=== PATIENT | female | born 1975 | race African-American/Black ===

== ENCOUNTER 2021-11-11 07:13 | Emergency (ER) | payer OTHER, SELFPAY ==
[2021-11-11 07:45] VITALS: BP 162/88; PULSE 87; RESP 17; O2SAT 100; BMI 27.9
[2021-11-11 08:13] LABS: MANUAL DIFF FLAG NO
[2021-11-11 08:14] LABS: Basophils Percent Auto 0.5 % (0-2); Eosinophils Absolute Auto 0.1 X10*3/uL (0.0-0.4); Eosinophils Percent Auto 2.6 % (0-4); Hematocrit 42.3 % (37.0-47.0); Imm Gran Abs Auto 0.01 X10*3/uL (0.00-0.03); Imm Gran Pct Auto 0.3 % (0.0-0.4); Lymphocytes Absolute Auto 1.7 X10*3/uL (1.2-4.9); Lymphocytes Percent Auto 43.6 % (20-40); Mean Corpuscular HGB Conc 33.1 g/dl (31.0-35.0); Mean Corpuscular Hemoglobin 29.5 pg (27.0-33.0); Mean Corpuscular Volume 89.2 fL (80.0-98.0); Mean Platelet Volume 8.3 fL (9.4-12.3); Monocytes Absolute Auto 0.3 X10*3/uL (0.1-1.2); Monocytes Percent Auto 6.7 % (2-11); Neutrophils Absolute Auto 1.8 x10*3/uL (2.0-8.3); Neutrophils Percent Auto 46.3 % (45-73); Platelet Count 301 X10*3/uL (160-400); Red Blood Count 4.74 X10*6/uL (4.20-5.50); Red Cell Distribution Width 13.4 % (11.0-16.0); White Blood Count 3.9 X10*3/uL (4.8-10.8)
[2021-11-11 08:17] LABS: Appearance Urine HAZY; Color Urine YELLOW; Glucose Urine UA NEG (NEG); Leukocyte Esterase Urine NEG (NEG); Nitrite Urine NEG (NEG); Specific Gravity - Urine >= 1.030 (1.005-1.025); Urine Blood NEG (NEG); Urine Ketones 5 MG/DL (NEG); Urine Protein TRACE MG/DL (NEG-TRACE)
[2021-11-11 08:28] LABS: D Dimer High Sensitivity 159 NG/ML; Partial Thromboplastin Time 39.2 SEC (24.1-38.0)
[2021-11-11 09:09] LABS: Troponin-I High Sensitivity < 3.5 ng/L (<3.5-17.0)
[2021-11-11 09:10] LABS: Alanine Aminotransferase 30 U/L (0-31); Albumin Level 4.9 g/dL (3.5-5.0); Alkaline Phosphatase 90 U/L (39-117); Anion Gap 14 (12-20); Aspartate Amino Transferase 28 U/L (5-31); Bilirubin Total 0.4 mg/dL (0.0-1.0); Blood Urea Nitrogen 7 mg/dL (9-16); Calcium 9.7 mg/dL (8.4-10.2); Carbon Dioxide 27 mmol/L (22-29); Chloride 102 mmol/L (96-108); Creatinine Clr Calc Pharmacy 67.9; Estimated Glomerular Filt Rate 58; Glucose Random 123 mg/dL (60-115); Lipase 28 U/L (8-78); Potassium 4.3 mmol/L (3.3-5.1); Sodium 139 mmol/L (135-145)
--- NOTE | 2021-11-11 11:17 | ED_ITS ---
HPI - General Adult General Chief complaint: General Medical Stated complaint: SOB Time Seen by Provider: 11/11/21 07:40 Source: patient Mode of arrival: ambulatory Limitations: no limitations History of Present Illness HPI narrative: 46-year-old female who presents emergency department for evaluation of shortness of breath and elevated blood pressures. The patient has a history of hypertension for at least 10 years. She states initially she was treated with lisinopril but developed a chronic cough and was changed to metoprolol. The patient was taking metoprolol 25 mg once a day but her blood pressures continue to be elevated. She states that her blood pressures would range from a systolic of 146-190 and a diastolic of 101-120. She crease term metoprolol to 50 mg once a day but did not seen any improvement in her blood pressure. She states that when her blood pressure is high she gets headaches. She also states that she has been feeling short of breath and fatigued over the past month. She does describe dyspnea on exertion is specially when she goes up her stairs. She denied chest pain neck pain, jaw pain or back pain associated with her dyspnea on exertion. The patient did see her PCP on 11/10/2021 (Joe BAEZ). Given her history ovarian cancer , her elevated blood pressures, tachycardia and some nonspecific T-wave changes on her EKG, he was concerned that the patient was at risk for DVT/PE advised to go to the emergency department. The patient could not go to the emergency department yesterday but did come to the emergency department today for evaluation. At the time my evaluation, the patient denied headache, chest pain, nausea, vomiting or abdominal pain. She denied weakness or fatigue. Related Data Previous Rx's Medication Instructions Recorded metoprolol succinate 100 mg 100 mg PO DAILY #30 tab 11/11/21 tablet,extended release 24 hr Allergies Allergy/AdvReac Type Severity Reaction Status Date / Time Penicillins Allergy Intermediate Hives Verified 11/11/21 07:41 Review of Systems Review of Systems: Yes all other systems are reviewed and are negative [facility] Past Medical History [facility] Narrative: Past medical history: Hypertension, GERD, ovarian cancer diagnosed in 2019 treated with surgery and chemo therapy. neuropathy secondary to chemotherapy. Past surgical history: Hysterectomy/BSO secondary to ovarian cancer. 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 She denies tobacco alcohol and drug use. Social History Social History Advance Directives: No Physical Exam ED Vital Signs: Vital Signs - 24 hr 11/11/21 07:45 Pulse Rate 87 Respiratory Rate 17 Blood Pressure 162/88 H Pulse Oximetry 100 BMI result Body Mass Index 27.9 Const Other: Awake, alert, female patient, very pleasant cooperative, does not appear to be in distress, answers all questions appropriately Orientation/consciousness: oriented to person and oriented to place HENMT Head: Yes normal to inspection, Yes normocephalic and Yes atraumatic Ears: external ears normal General nose exam: Normal external nose present Face and sinus: Yes normal facial exam Mouth: Normal oral and palatal mucosa present Throat: Yes posterior oropharynx normal Eyes General: appearance normal, both eyes and all related structures Pupils: Equal, round and reactive pupils present Neck Neck: Yes normal visual inspection, Yes no lymphadenopathy, Yes trachea midline and Yes supple Chest Chest palpation & inspection: normal inspection of the chest and normal palpation of entire chest wall Resp Effort & Inspection: normal respiratory effort and able to speak in complete sentences Auscultation: clear to auscultation bilaterally Cardio Rate: regular rate Rhythm: regular rhythm Heart sounds: S1 normal heart sound present, S2 normal heart sound present and no murmurs GI Inspection: Yes normal to inspection Palpation (GI): Soft to palpation, nontender and no guarding Auscultation: normal bowel sounds General: Yes no CVA tenderness Back/Spine/Pelvis Back: no CVA tenderness Skin General skin exam: no rashes or lesions noted Neuro General: oriented to person and oriented to place Cranial nerves: Yes CN's II-XII intact bilaterally and Yes Equal, round and reactive pupils present Cognition (Neuro): normal cognition Motor exam (neuro): 5/5 motor strength present throughout Extrem General: Yes normal to inspection Psych Appearance: grossly normal Speech and movement: Normal speech and movement present Affect: normal affect Attitude: cooperative Thought process: Normal thought process present Thought content: Normal thought content present Course Course Course Narrative: 46-year-old female who presents emergency department for evaluation of elevated blood pressure and dyspnea on exertion. Patient's blood pressure is currently being treated with metoprolol 50 mg once a day. initial vital signs revealed a blood pressure of 162/88. The rest of the patient's vital signs were normal including an O2 saturation of 100% on room air. The patient's physical examination was normal. Laboratory evaluation included a CBC, CMP, PT/INR, PTT, high sensitivity troponin I and high sensitivity dimer, and urinary. Patient's WBC was low at 3900. Glucose was elevated 123. Patient's high sensitivity D-dimer was normal at 159 which is reassuring and rules out PE as the cause of her dyspnea. Patient's troponin was also below detectable limits which is reassuring. Patient's urinalysis revealed trace protein and positive for glucose otherwise was unremarkable as well. At this time I think that the patient's elevated blood pressures are secondary to her essential hypertension. The patient's has been on a higher dose of her metoprolol over the past month but has continued to have elevated blood pressures. Therefore I will increase her metoprolol from 50 mg daily to 100 mg daily. At this time I do not have a clear etiology for her dyspnea, cardiac etiology needs to be considered. I told the patient she should discuss getting an echocardiogram as an outpatient with her provider. The patient was advised to check her blood pressures on Mondays, Wednesdays and Saturday mornings for the next month and to write these blood pressures down to discuss with her provider. She was given printed and verbal instructions and discharged home. Medical Decision Making Lab Data Result diagrams: 11/11/21 08:02 11/11/21 08:02 Labs: Lab Results 11/11/21 11/11/21 11/11/21 Range/Units 08:02 08:02 08:02 WBC 3.9 L (4.8-10.8) X10*3/uL RBC 4.74 (4.20-5.50) X10*6/uL Hgb 14.0 (12.0-16.0) g/dl Hct 42.3 (37.0-47.0) % MCV 89.2 (80.0-98.0) fL MCH 29.5 (27.0-33.0) pg MCHC 33.1 (31.0-35.0) g/dl RDW 13.4 (11.0-16.0) % Plt Count 301 (160-400) X10*3/uL MPV 8.3 L (9.4-12.3) fL Immature Gran % (Auto) 0.3 (0.0-0.4) % Neut % (Auto) 46.3 (45-73) % Lymph % (Auto) 43.6 H (20-40) % Hawkins % (Auto) 6.7 (2-11) % Eos % (Auto) 2.6 (0-4) % Baso % (Auto) 0.5 (0-2) % Lymph # (Auto) 1.7 (1.2-4.9) X10*3/uL Hawkins # (Auto) 0.3 (0.1-1.2) X10*3/uL Eos # (Auto) 0.1 (0.0-0.4) X10*3/uL Baso # (Auto) 0.0 (0.0-0.2) X10*3/uL Abs Immat Gran (auto) 0.01 (0.00-0.03) X10*3/uL Absolute Neuts (auto) 1.8 L (2.0-8.3) x10*3/uL Absolute Nucleated RBC 0.000 (0.0-0.012) X10*3/uL Nucleated RBC % (auto) 0.0 (0.0-0.2) /100WBC PT 11.0 (9.9-13.0) SEC INR 1.0 (0.9-1.1) APTT 39.2 H (24.1-38.0) SEC D-Dimer High Sensitivty 159 NG/ML Sodium 139 (135-145) mmol/L Potassium 4.3 (3.3-5.1) mmol/L Chloride 102 (96-108) mmol/L Carbon Dioxide 27 (22-29) mmol/L Anion Gap 14 (12-20) BUN 7 L (9-16) mg/dL Creatinine 1.03 (0.5-1.4) mg/dL Estim Creat Clear Calc 67.9 Estimated GFR 58 Random Glucose 123 H (60-115) mg/dL Calcium 9.7 (8.4-10.2) mg/dL Total Bilirubin 0.4 (0.0-1.0) mg/dL AST 28 (5-31) U/L ALT 30 (0-31) U/L Alkaline Phosphatase 90 (39-117) U/L Troponin I High Sens (<3.5-17.0) ng/L Total Protein 8.0 (6.5-8.0) g/dL Albumin 4.9 (3.5-5.0) g/dL Lipase 28 (8-78) U/L Urine Color Urine Appearance Urine pH (5.0-8.0) Ur Specific [place] (1.005-1.025) Urine Protein (NEG-TRACE) MG/DL Urine Glucose (UA) (NEG) MG/DL Urine Ketones (NEG) MG/DL Urine Blood (NEG) Urine Nitrite (NEG) Ur Leukocyte Esterase (NEG) 11/11/21 11/11/21 Range/Units 08:02 08:03 WBC (4.8-10.8) X10*3/uL RBC (4.20-5.50) X10*6/uL Hgb (12.0-16.0) g/dl Hct (37.0-47.0) % MCV (80.0-98.0) fL MCH (27.0-33.0) pg MCHC (31.0-35.0) g/dl RDW (11.0-16.0) % Plt Count (160-400) X10*3/uL MPV (9.4-12.3) fL Immature Gran % (Auto) (0.0-0.4) % Neut % (Auto) (45-73) % Lymph % (Auto) (20-40) % Hawkins % (Auto) (2-11) % Eos % (Auto) (0-4) % Baso % (Auto) (0-2) % Lymph # (Auto) (1.2-4.9) X10*3/uL Hawkins # (Auto) (0.1-1.2) X10*3/uL Eos # (Auto) (0.0-0.4) X10*3/uL Baso # (Auto) (0.0-0.2) X10*3/uL Abs Immat Gran (auto) (0.00-0.03) X10*3/uL Absolute Neuts (auto) (2.0-8.3) x10*3/uL Absolute Nucleated RBC (0.0-0.012) X10*3/uL Nucleated RBC % (auto) (0.0-0.2) /100WBC PT (9.9-13.0) SEC INR (0.9-1.1) APTT (24.1-38.0) SEC D-Dimer High Sensitivty NG/ML Sodium (135-145) mmol/L Potassium (3.3-5.1) mmol/L Chloride (96-108) mmol/L Carbon Dioxide (22-29) mmol/L Anion Gap (12-20) BUN (9-16) mg/dL Creatinine (0.5-1.4) mg/dL Estim Creat Clear Calc Estimated GFR Random Glucose (60-115) mg/dL Calcium (8.4-10.2) mg/dL Total Bilirubin (0.0-1.0) mg/dL AST (5-31) U/L ALT (0-31) U/L Alkaline Phosphatase (39-117) U/L Troponin I High Sens < 3.5 (<3.5-17.0) ng/L Total Protein (6.5-8.0) g/dL Albumin (3.5-5.0) g/dL Lipase (8-78) U/L Urine Color YELLOW Urine Appearance HAZY Urine pH 6.0 (5.0-8.0) Ur Specific [place] >= 1.030 H (1.005-1.025) Urine Protein TRACE (NEG-TRACE) MG/DL Urine Glucose (UA) NEG (NEG) MG/DL Urine Ketones 5 (NEG) MG/DL Urine Blood NEG (NEG) Urine Nitrite NEG (NEG) Ur Leukocyte Esterase NEG (NEG) Discharge Plan Discharge Clinical Impression: MARI (dyspnea on exertion) Hypertension Qualifiers: Hypertension type: primary hypertension Qualified Code(s): I10 - Essential (primary) hypertension Patient Disposition: Home, Self-Care Additional Instructions: Your blood work today was normal. Your D-dimer was not elevated which suggests that you do not have a pulmonary embolism (blood clot your lungs) causing your shortness of breath when you exert yourself. Your high sensitivity troponin I (a marker of heart damage) was below detectable limits which is reassuring as well. Your urine revealed no protein in the urine and your kidney blood tests were normal as well which is reassuring. Often, there is not a clear cause or reason why your high blood pressure is higher than usual The treatment is to increase the blood pressure medication that your on or to add a new blood pressure medication to the medicine you are taking. At this time, I want to increase your metoprolol from 50 mg once a day to 100 mg once a day. Once we increase your blood pressure medication , it may take 4-6 weeks before your blood pressure improves. I want you to check your blood pressure in the mornings on Mondays, Wednesdays and Fridays. Write down these blood pressure readings and I want you to review them with your primary provider in 1 month. I do not have a clear cause for your shortness of breath with exertion, sometimes this can be due heart problems. I want you to discuss getting a echocardiogram of your heart as an outpatient with your provider and possibly getting further testing of your heart if your provider thinks it is necessary. Please return to the emergency department if your symptoms get worse or if you develop any symptoms that are concerning to you. Prescriptions: New metoprolol succinate 100 mg tablet extended release 24 hr 100 mg PO DAILY Qty: 30 0RF
== END 2021-11-11 11:40 | disposition home or self-care (01) ==
PROVIDERS: Emergency Provider Emergency Medicine Emergency Medical Services; PCP Internal Medicine
DX: R06.02 Shortness of breath (principal); I10 Essential (primary) hypertension; Z79.899 Other long term (current) drug therapy
CPT/HCPCS: 36415; 80053; 81003; 83690; 84484; 85025; 85379; 85610; 85730; 99281; 99283

== ENCOUNTER 2022-10-22 16:26 | Emergency (ER) | payer OTHER, SELFPAY ==
--- NOTE | 2022-10-22 16:43 | ED_ITS ---
History of Present Illness General Chief Complaint: Headache <NESTOR Trevizo - Last Filed: 10/22/22 16:45> Stated Complaint: nose bleed, hedache <NESTOR Trevizo - Last Filed: 10/22/22 16:45> Time Seen by Provider: 10/22/22 16:52 <NESTOR Trevizo - Last Filed: 10/22/22 16:45> Source: patient <Arturo Hoff MD - Last Filed: 10/22/22 18:51> Mode of arrival: ambulatory <Arturo Hoff MD - Last Filed: 10/22/22 18:51> Limitations: no limitations <Arturo Hoff MD - Last Filed: 10/22/22 18:51> History of Present Illness HPI Narrative: Patient with recent history a few months ago of epistaxis, at that time her BP was running in the 200s. Now this week twice, not taking her BP. She is taking amlodipine and metopolol. No recent changes in her medication. Denies sinusitis or seasonal allergies. <Arturo Hoff MD - Last Filed: 10/22/22 18:51> Location: Yes left naris and Yes right nares <Arturo Hoff MD - Last Filed: 10/22/22 18:51> Onset/current episode: Yes week(s) <Arturo Hoff MD - Last Filed: 10/22/22 18:51> Duration: Yes intermittent <Arturo Hoff MD - Last Filed: 10/22/22 18:51> Pertinent past history: Yes hypertension and Yes history of previous nose bleed <Arturo Hoff MD - Last Filed: 10/22/22 18:51> Context: Yes history of previous nose bleed <Arturo Hoff MD - Last Filed: 10/22/22 18:51> Related Data Home Medications: Previous Rx's Medication Instructions Recorded metoprolol succinate 100 mg 100 mg PO DAILY #30 tabs 11/11/21 tablet,extended release 24 hr <NESTOR Trevizo - Last Filed: 10/22/22 16:45> Allergies/Adverse Reactions: Allergies Allergy/AdvReac Type Severity Reaction Status Date / Time Penicillins Allergy Intermediate Hives Verified 10/22/22 16:45 <NESTOR Trevizo - Last Filed: 10/22/22 16:45> Review of Systems Review of Systems: Yes all other systems are reviewed and are negative <Arturo Hoff MD - Last Filed: 10/22/22 18:51> ENT: Comments: epistaxis and headache <Arturo Hoff MD - Last Filed: 10/22/22 18:51> Neurologic: Denies Sensory deficit (Neuro) <Arturo Hoff MD - Last Filed: 10/22/22 18:51> [facility] Social History Social History: Social History Advance Directives: No Advance Directives Information Provided: Yes <NESTOR Trevizo - Last Filed: 10/22/22 16:45> Physical Exam Vital Signs: Vital Signs: Last Vital Signs Temp 98.7 F 10/22/22 16:45 Pulse 112 H 10/22/22 16:45 Resp 16 10/22/22 16:45 BP 162/109 H 10/22/22 16:45 Pulse Ox 99 10/22/22 16:45 O2 Del Method Room Air 10/22/22 16:45 BMI result Body Mass Index 29.2 <NESTOR Trevizo - Last Filed: 10/22/22 16:45> Vital Signs: Last Vital Signs Temp 98.7 F 10/22/22 16:45 Pulse 112 H 10/22/22 16:45 Resp 16 10/22/22 16:45 BP 162/109 H 10/22/22 16:45 Pulse Ox 99 10/22/22 16:45 O2 Del Method Room Air 10/22/22 16:45 BMI result Body Mass Index 29.2 <Arturo Hoff MD - Last Filed: 10/22/22 18:51> Const: General: healthy appearing <Arturo Hoff MD - Last Filed: 10/22/22 18:51> Nutritional Appearance: average body habitus <Arturo Hoff MD - Last Filed: 10/22/22 18:51> Orientation/consciousness: oriented to person and patient oriented x3 <Arturo Hoff MD - Last Filed: 10/22/22 18:51> Limitations: no limitations <Arturo Hoff MD - Last Filed: 10/22/22 18:51> HEENT: Other: bilateral medial blood vessels exposed with clot <Arturo Hoff MD - Last Filed: 10/22/22 18:51> Head: Yes normal to inspection <Arturo Hoff MD - Last Filed: 10/22/22 18:51> Ears: external ears normal <Arturo Hoff MD - Last Filed: 10/22/22 18:51> Mouth: Normal oral and palatal mucosa present and oropharynx normal <Arturo Hoff MD - Last Filed: 10/22/22 18:51> Throat: Yes posterior oropharynx normal <Arturo Hoff MD - Last Filed: 10/22/22 18:51> Eyes: General: appearance normal, both eyes and all related structures <Arturo Hoff MD - Last Filed: 10/22/22 18:51> Neck: Other: supple <Arturo Hoff MD - Last Filed: 10/22/22 18:51> Neck: Yes normal visual inspection <Arturo Hoff MD - Last Filed: 10/22/22 18:51> Chest: Chest palpation & inspection: normal inspection of the chest <Arturo Hoff MD - Last Filed: 10/22/22 18:51> Resp: Auscultation: clear to auscultation bilaterally <Arturo Hoff MD - Last Filed: 10/22/22 18:51> Cardio: Jugular venous distension: no JVD <Arturo Hoff MD - Last Filed: 10/22/22 18:51> Rate: regular rate <Arturo Hoff MD - Last Filed: 10/22/22 18:51> Rhythm: regular rhythm <Arturo Hoff MD - Last Filed: 10/22/22 18:51> Heart sounds: S1 normal heart sound present and S2 normal heart sound present <MD Audi Botello Last Filed: 10/22/22 18:51> GI: Inspection: Yes normal to inspection <Arturo Hoff MD - Last Filed: 10/22/22 18:51> Palpation (GI): Soft to palpation, nontender and No hepatosplenomegaly present <Arturo Hoff MD - Last Filed: 10/22/22 18:51> Auscultation: normal bowel sounds <Arturo Hoff MD - Last Filed: 10/22/22 18:51> : General: Yes no CVA tenderness <Arturo Hoff MD - Last Filed: 10/22/22 18:51> Back/Spine/Pelvis: Back: no CVA tenderness <Arturo Hoff MD - Last Filed : 10/22/22 18:51> Skin: General skin exam: no rashes or lesions noted <Arturo Hoff MD - Last Filed: 10/22/22 18:51> Neuro: General: oriented to person and patient oriented x3 <Arturo Hoff MD - Last Filed: 10/22/22 18:51> Cranial nerves: Yes CN's II-XII intact bilaterally <Arturo Hoff MD - Last Filed: 10/22/22 18:51> Motor exam (neuro): 5/5 motor strength present throughout <Arturo Hoff MD - Last Filed: 10/22/22 18:51> Sensory Exam: No Sensory deficit (Neuro) <Arturo Hoff MD - Last Filed: 10/22/22 18:51> Extrem: General: Yes normal to inspection <Arturo Hoff MD - Last Filed: 10/22/22 18:51> Psych: Appearance: grossly normal <Arturo Hoff MD - Last Filed: 10/22/22 18:51> Course Course Course Narrative: RME - 47 yo female with history of HTN, ovarian cancer s/p surgery and chemo in 2019, history of nose bleeds who presents to the ER for evaluation of epistaxis today and yesterday. Bleeding started in the left nare and then went to the right, lasted about 10-15 before it stopped. She reports large clots coming out. Nose bleeds w/ HTN. No active bleeding now. Plan: basic labs and coags. <NESTOR Trevizo - Last Filed: 10/22/22 16:45> Medical Decision Making Differential Diagnosis Differential Diagnoses: The differential diagnosis associated with the presentation includes (epistaxis, thrombocytopenia, anemia, ) <Arturo Hoff MD - Last Filed: 10/22/22 18:51> Lab Data MDM Lab Attestation statement: I reviewed the patient's lab results. (patient with new anemia but has been bleeding for 2 weeks) <Arturo Hoff MD - Last Filed: 10/22/22 18:51> Result Diagrams: 10/22/22 17:04 10/22/22 17:04 <NESTOR Trevizo - Last Filed: 10/22/22 16:45> Labs: Lab Results 10/22/22 10/22/22 10/22/22 Range/Units 17:04 17:04 17:04 WBC 8.6 (4.8-10.8) X10*3/uL RBC 3.75 L D (4.20-5.50) X10*6/uL Hgb 10.9 L D (12.0-16.0) g/dl Hct 33.4 L D (37.0-47.0) % MCV 89.1 (80.0-98.0) fL MCH 29.1 (27.0-33.0) pg MCHC 32.6 (31.0-35.0) g/dl RDW 13.5 (11.0-16.0) % Plt Count 295 (160-400) X10*3/uL MPV 8.6 L (9.4-12.3) fL Immature Gran % (Auto) 0.4 (0.0-0.4) % Neut % (Auto) 63.1 (45-73) % Lymph % (Auto) 26.9 (20-40) % [place] % (Auto) 8.3 (2-11) % Eos % (Auto) 0.8 (0-4) % Baso % (Auto) 0.5 (0-2) % Lymph # (Auto) 2.3 (1.2-4.9) X10*3/uL [place] # (Auto) 0.7 (0.1-1.2) X10*3/uL Eos # (Auto) 0.1 (0.0-0.4) X10*3/uL Baso # (Auto) 0.0 (0.0-0.2) X10*3/uL Abs Immat Gran (auto) 0.03 (0.00-0.03) X10*3/uL Absolute Neuts (auto) 5.4 (2.0-8.3) x10*3/uL Absolute Nucleated RBC 0.000 (0.0-0.012) X10*3/uL Nucleated RBC % (auto) 0.0 (0.0-0.2) /100WBC PT 11.4 (10.0-13.1) SEC INR 1.0 (0.9-1.1) APTT 34.7 (26.0-36.4) SEC Sodium 138 (135-145) mmol/L Potassium 3.8 (3.3-5.1) mmol/L Chloride 103 (96-108) mmol/L Carbon Dioxide 26 (22-29) mmol/L Anion Gap 13 (12-20) BUN 8 L (9-16) mg/dL Creatinine 0.88 (0.5-1.4) mg/dL Estim Creat Clear Calc 80.2 Estimated GFR > 60 Random Glucose 140 H (60-115) mg/dL Calcium 9.2 (8.4-10.2) mg/dL Magnesium 2.0 (1.6-2.6) mg/dL Total Bilirubin 0.2 (0.0-1.0) mg/dL Direct Bilirubin < 0.2 (0.0-0.5) mg/dL AST 21 (5-31) U/L ALT 21 (0-31) U/L Alkaline Phosphatase 87 (39-117) U/L Total Protein 6.7 (6.5-8.0) g/dL Albumin 4.3 (3.5-5.0) g/dL <NESTOR Trevizo - Last Filed: 10/22/22 16:45> Lab Results 10/22/22 10/22/22 10/22/22 Range/Units 17:04 17:04 17:04 WBC 8.6 (4.8-10.8) X10*3/uL RBC 3.75 L D (4.20-5.50) X10*6/uL Hgb 10.9 L D (12.0-16.0) g/dl Hct 33.4 L D (37.0-47.0) % MCV 89.1 (80.0-98.0) fL MCH 29.1 (27.0-33.0) pg MCHC 32.6 (31.0-35.0) g/dl RDW 13.5 (11.0-16.0) % Plt Count 295 (160-400) X10*3/uL MPV 8.6 L (9.4-12.3) fL Immature Gran % (Auto) 0.4 (0.0-0.4) % Neut % (Auto) 63.1 (45-73) % Lymph % (Auto) 26.9 (20-40) % [place] % (Auto) 8.3 (2-11) % Eos % (Auto) 0.8 (0-4) % Baso % (Auto) 0.5 (0-2) % Lymph # (Auto) 2.3 (1.2-4.9) X10*3/uL [place] # (Auto) 0.7 (0.1-1.2) X10*3/uL Eos # (Auto) 0.1 (0.0-0.4) X10*3/uL Baso # (Auto) 0.0 (0.0-0.2) X10*3/uL Abs Immat Gran (auto) 0.03 (0.00-0.03) X10*3/uL Absolute Neuts (auto) 5.4 (2.0-8.3) x10*3/uL Absolute Nucleated RBC 0.000 (0.0-0.012) X10*3/uL Nucleated RBC % (auto) 0.0 (0.0-0.2) /100WBC PT 11.4 (10.0-13.1) SEC INR 1.0 (0.9-1.1) APTT 34.7 (26.0-36.4) SEC Sodium 138 (135-145) mmol/L Potassium 3.8 (3.3-5.1) mmol/L Chloride 103 (96-108) mmol/L Carbon Dioxide 26 (22-29) mmol/L Anion Gap 13 (12-20) BUN 8 L (9-16) mg/dL Creatinine 0.88 (0.5-1.4) mg/dL Estim Creat Clear Calc 80.2 Estimated GFR > 60 Random Glucose 140 H (60-115) mg/dL Calcium 9.2 (8.4-10.2) mg/dL Magnesium 2.0 (1.6-2.6) mg/dL Total Bilirubin 0.2 (0.0-1.0) mg/dL Direct Bilirubin < 0.2 (0.0-0.5) mg/dL AST 21 (5-31) U/L ALT 21 (0-31) U/L Alkaline Phosphatase 87 (39-117) U/L Total Protein 6.7 (6.5-8.0) g/dL Albumin 4.3 (3.5-5.0) g/dL <Arturo Hoff MD - Last Filed: 10/22/22 18:51> Chronic Conditions Patient?s care impacted by: Hypertension (patients hypertension need better control and that will help with the nosebleeds) <Arturo Hoff MD - Last Filed: 10/22/22 18:51> Procedures Procedure Narrative Procedure Narrative: bilateral nasal chemical cautery performed <Arturo Hoff MD - Last Shakir ed: 10/22/22 18:51> Discharge Plan Discharge Clinical Impression: Acute anterior epistaxis, Anemia, Hypertension <NESTOR Trevizo - Last Filed: 10/22/22 16:45> Patient Disposition: Home, Self-Care <NESTOR Trevizo - Last Filed: 10/22/22 16:45> Instructions: Nosebleed (ED), Anemia (ED), Hypertension (ED) <NESTOR Trevizo - Last Filed: 10/22/22 16:45> Additional Instructions: take a multivitamin with iron everyday <NESTOR Trevizo - Last Filed: 10/22/22 16:45> Prescriptions: No Action metoprolol succinate 100 mg tablet extended release 24 hr 100 mg PO DAILY Qty: 30 0RF <NESTOR Trevizo - Last Filed: 10/22/22 16:45> Referrals: Phan Vogel III, MD [Primary Care Provider] - 5 days <NESTOR Trevizo - Last Filed: 10/22/22 16:45>
[2022-10-22 16:45] VITALS: BP 162/109; PULSE 112; RESP 16; TEMP 37.1; O2SAT 99; BMI 29.2
[2022-10-22 17:07] LABS: MANUAL DIFF FLAG NO
[2022-10-22 17:12] LABS: Basophils Percent Auto 0.5 % (0-2); Eosinophils Absolute Auto 0.1 X10*3/uL (0.0-0.4); Eosinophils Percent Auto 0.8 % (0-4); Hematocrit 33.4 % (37.0-47.0); Hemoglobin 10.9 g/dl (12.0-16.0); Imm Gran Abs Auto 0.03 X10*3/uL (0.00-0.03); Imm Gran Pct Auto 0.4 % (0.0-0.4); Lymphocytes Absolute Auto 2.3 X10*3/uL (1.2-4.9); Lymphocytes Percent Auto 26.9 % (20-40); Mean Corpuscular HGB Conc 32.6 g/dl (31.0-35.0); Mean Corpuscular Hemoglobin 29.1 pg (27.0-33.0); Mean Corpuscular Volume 89.1 fL (80.0-98.0); Mean Platelet Volume 8.6 fL (9.4-12.3); Monocytes Absolute Auto 0.7 X10*3/uL (0.1-1.2); Monocytes Percent Auto 8.3 % (2-11); Neutrophils Absolute Auto 5.4 x10*3/uL (2.0-8.3); Neutrophils Percent Auto 63.1 % (45-73); Platelet Count 295 X10*3/uL (160-400); Red Blood Count 3.75 X10*6/uL (4.20-5.50); Red Cell Distribution Width 13.5 % (11.0-16.0); White Blood Count 8.6 X10*3/uL (4.8-10.8)
[2022-10-22 17:19] LABS: Prothrombin Time 11.4 SEC (10.0-13.1)
[2022-10-22 17:21] LABS: Partial Thromboplastin Time 34.7 SEC (26.0-36.4)
[2022-10-22 17:29] LABS: Alanine Aminotransferase 21 U/L (0-31); Albumin Level 4.3 g/dL (3.5-5.0); Alkaline Phosphatase 87 U/L (39-117); Anion Gap 13 (12-20); Aspartate Amino Transferase 21 U/L (5-31); Bilirubin Direct < 0.2 mg/dL (0.0-0.5); Bilirubin Total 0.2 mg/dL (0.0-1.0); Blood Urea Nitrogen 8 mg/dL (9-16); Calcium 9.2 mg/dL (8.4-10.2); Carbon Dioxide 26 mmol/L (22-29); Chloride 103 mmol/L (96-108); Creatinine Clr Calc Pharmacy 80.2; Estimated Glomerular Filt Rate > 60; Glucose Random 140 mg/dL (60-115); Potassium 3.8 mmol/L (3.3-5.1); Sodium 138 mmol/L (135-145); Total Protein 6.7 g/dL (6.5-8.0)
== END 2022-10-22 18:59 | disposition home or self-care (01) ==
PROVIDERS: Physician Assistant; Emergency Provider Emergency Medicine; PCP Internal Medicine
DX: R04.0 Epistaxis (principal); D64.9 Anemia, unspecified; I10 Essential (primary) hypertension; Z79.899 Other long term (current) drug therapy
CPT/HCPCS: 30901; 36415; 80048; 80076; 83735; 85025; 85610; 85730; 99282; 99283

== ENCOUNTER 2022-10-24 22:11 | Emergency (ER) | payer OTHER, SELFPAY ==
--- NOTE | ~2022-10-24 | XR_ITS ---
EXAMINATION: XR CHEST CLINICAL INFORMATION: Cough COMPARISON: None available. TECHNIQUE: 2 views of the chest were obtained. FINDINGS: No significant abnormality is noted involving the heart, lungs, mediastinum, bony thorax or soft tissues. XR/XR chest 2V IMPRESSION: Unremarkable examination.
[2022-10-24 22:28] VITALS: BP 151/86; PULSE 86; RESP 16; TEMP 36.9; O2SAT 100
--- NOTE | 2022-10-24 22:35 | ED_ITS ---
HPI - URI/Sore Throat General Chief Complaint: Upper Respiratory Symptoms Stated Complaint: Headache/nosebleed Time Seen by Provider: 10/24/22 22:18 Source: patient Mode of arrival: ambulatory Limitations: no limitations History of Present Illness HPI Narrative: Patient otherwise healthy nonsmoker with cough for 10 days getting worse episodes epistaxis was prescribed penicillin on 10/18 with without much response . No fever no chills cough is mostly dry but sometimes get mucopurulent expectoration increased cough in the night time no wheezing or shortness of breath feel congested Related Data Previous Rx's Medication Instructions Recorded metoprolol succinate 100 mg 100 mg PO DAILY #30 tabs 11/11/21 tablet,extended release 24 hr albuterol sulfate 90 mcg/actuation 2 puff inhalation Q4-6H PRN 10/25/22 aerosol inhaler (ProAir HFA) shortness of breath or wheezing #8.5 grams cefdinir 300 mg capsule 300 mg PO BID #14 caps 10/25/22 codeine 10 mg-guaifenesin 100 mg/5 10 ml PO Q6H PRN cough #237 mL 10/25/22 mL oral liquid prednisone 20 mg tablet 40 mg PO DAILY #10 tabs 10/25/22 Allergies Allergy/AdvReac Type Severity Reaction Status Date / Time No Known Allergies Allergy Verified 10/25/22 00:39 [facility] Social History Social History Alcohol intake: never Use of substances other than those prescribed or required for medical reasons: No Advance Directives: No Advance Directives Information Provided: No Patient : No Physical Exam Vital Signs: Vital Signs: Last Vital Signs Temp 98.4 F 10/24/22 22:28 Pulse 80 10/24/22 22:49 Resp 16 10/24/22 22:49 BP 151/86 H 10/24/22 22:28 Pulse Ox 96 10/24/22 23:40 O2 Del Method Room Air 10/24/22 23:40 BMI result Body Mass Index 29.2 Appearance: Alert. Oriented X3. No acute distress. HEENT: Pharynx normal. Oral Mucosa moist bilateral impacted cerumen Neck: Normal inspection. Neck supple. CVS: Normal heart rate and rhythm. Pulses normal. Respiratory: No respiratory distress. Equal air entry bilateral, no wheezing/rales/rhonchi prolonged expiration Abdomen: Soft and nontender. Bowel sounds are present, no mass palpable, no CVA tenderness Skin: Skin warm and dry. Normal skin color. Normal skin turgor. Extremities: No lower extremity edema. No calf tenderness Neuro: Oriented X 3. No motor deficit. Medications Administered Discontinued Medications Generic Name Dose Route Start Last Admin Trade Name Freq PRN Reason Stop Dose Admin Albuterol/Ipratropium 3 ml 10/24/22 22:36 10/24/22 22:48 Albuterol/Iprat 2.5/0.5mg 3 Ml Ampul.Neb INHALE 10/24/22 22:37 3 ml ONCE ONE Administration Dexamethasone 10 mg 10/24/22 22:36 10/24/22 22:59 Dexamethasone 2 Mg Tablet PO 10/24/22 22:37 10 mg ONCE ONE Administration Guaifenesin/Codeine Phosphate 10 ml 10/24/22 22:36 10/24/22 22:59 Guaifen/Codeine Sf 200/20/10ml 10 Ml Liquid PO 10/24/22 22:37 10 ml ONCE ONE Administration Medical Decision Making Medical Decision Making [facility] Narrative: Patient with acute bronchitis x-ray negative improved after inhaler discharge patient home on cefdinir with inhaler and prednisone Discharge Plan Discharge Clinical Impression: Bronchitis Patient Disposition: Home, Self-Care Instructions: Acute Bronchitis (ED) Additional Instructions: Use inhaler 2 puffs every 4-6 hours as needed Prednisone as prescribed Antibiotic as prescribed Cough drops for severe cough as prescribed Prescriptions: New prednisone 20 mg tablet 40 mg PO DAILY Qty: 10 0RF codeine-guaifenesin 10-100 mg/5 mL liquid 10 ml PO Q6H PRN (Reason: cough) Qty: 237 0RF albuterol sulfate [ProAir HFA] 90 mcg/actuation HFA aerosol inhaler 2 puff inhalation Q4-6H PRN (Reason: shortness of breath or wheezing) Qty: 8.5 0RF cefdinir 300 mg capsule 300 mg PO BID Qty: 14 0RF No Action metoprolol succinate 100 mg tablet extended release 24 hr 100 mg PO DAILY Qty: 30 0RF
[2022-10-24 22:40] VITALS: BMI 29.2
[2022-10-24] MEDS: Albuterol/Iprat 2.5/0.5MG 3 ML AMPUL.NEB INHALE (22:48)
[2022-10-24 22:49] VITALS: PULSE 80; RESP 16; O2SAT 98
[2022-10-24] MEDS: dexAMETHasone 2 MG TABLET 10 MG PO (22:59)
[2022-10-24] MEDS: guaiFEN/Codeine SF 200/20/10ML 10 ML LIQUID PO (22:59)
[2022-10-24 23:40] VITALS: O2SAT 96
== END 2022-10-25 00:42 | disposition home or self-care (01) ==
PROVIDERS: Emergency Provider Internal Medicine; PCP Internal Medicine
DX: J40 Bronchitis, not specified as acute or chronic (principal)
CPT/HCPCS: 71046; 99284; 99285; J8540

== ENCOUNTER 2023-05-29 09:50 | Emergency (ER) | payer OTHER, SELFPAY ==
--- NOTE | ~2023-05-29 | XR_ITS ---
EXAMINATION: XR CHEST CLINICAL INFORMATION: Cough. COMPARISON: None available. TECHNIQUE: 2 views of the chest were obtained. FINDINGS: No significant abnormality is noted involving the heart, lungs, mediastinum, bony thorax or soft tissues. XR/XR chest 2V IMPRESSION: Unremarkable chest examination.
--- NOTE | 2023-05-29 09:55 | ED_ITS ---
HPI - General Adult General Chief complaint: Upper Respiratory Symptoms Stated complaint: Throat Pain Time Seen by Provider: 05/29/23 09:54 Source: patient Mode of arrival: ambulatory Limitations: no limitations History of Present Illness HPI narrative: Patient is a 48 year old assigned female at with a history of HTN presenting to the emergency department today with a cough, sore throat, and nasal congestion. Patient states that over the last 4 days she has been coughing up green phlegm, had a sore throat, and has had nasal congestion Patient denies any dizziness, lightheadedness, abdominal pain, nausea, vomiting, fever, chills, blurry vision, double vision, loss of vision, chest pain, difficulty breathing, shortness of breath, back pain, night sweats, pain with urination, increased urinary frequency, increased urinary urgency, blood in her urine or stool, syncope or a near syncopal episode, recent trauma or falls, bowel incontinence, bladder incontinence, bowel retention, bladder retention, or any other complaints at this time. Onset (ago): day(s) (4) Severity: mild Severity scale (1-10): 3 Quality: aching and dull Pain Consistency: constant Relieving factors: none Exacerbating factors: none Associated symptoms: cough Treatments prior to arrival: none Related Data Previous Rx's Medication Instructions Recorded metoprolol succinate 100 mg 100 mg PO DAILY #30 tabs 11/11/21 tablet,extended release 24 hr albuterol sulfate 90 mcg/actuation 2 puff inhalation Q4-6H PRN 10/25/22 aerosol inhaler (ProAir HFA) shortness of breath or wheezing #8.5 grams cefdinir 300 mg capsule 300 mg PO BID #14 caps 10/25/22 codeine 10 mg-guaifenesin 100 mg/5 10 ml PO Q6H PRN cough #237 mL 10/25/22 mL oral liquid prednisone 20 mg tablet 40 mg (2 x 20 mg) PO DAILY #10 tabs 10/25/22 benzonatate 100 mg capsule 100 mg PO BID PRN cough 7 days #14 05/29/23 caps doxycycline hyclate 100 mg tablet 100 mg PO BID 7 days #14 tabs 05/29/23 prednisone 20 mg tablet 20 mg PO DAILY 7 days #7 tabs 05/29/23 Allergies Allergy/AdvReac Type Severity Reaction Status Date / Time No Known Allergies Allergy Verified 10/25/22 00:39 Review of Systems Constitutional: Constitutional: Reports no additional constitutional complaints, Denies chills, Denies fever(s) and Denies night sweats Eyes: Eyes: Reports no additional eye complaints, Denies blurry vision, Denies change in vision, Denies diplopia, Denies eye discharge, Denies loss of vision and Denies eye pain ENT: Denies dizziness, Reports nasal congestion and Reports sore throat Cardiovascular: Cardiovascular: Reports no additional cardiovascular complaints, Denies chest pain, Denies lightheadedness, Denies Loss of Consciousness and Denies dyspnea Respiratory: Respiratory: Reports no additional respiratory complaints, Reports cough and Denies dyspnea Gastrointestinal: Gastrointestinal: Reports no additional gastrointestinal complaints, Denies abdominal pain, Denies melena, Denies hematochezia, Denies change in bowel habits and Denies change in stool character Genitourinary: Genitourinary: Denies hematuria, Denies urinary frequency, Denies dysuria, Denies urinary incontinence, Denies urinary hesitancy and Denies urinary urgency Musculoskeletal: Musculoskeletal: Reports no additional musculoskeletal complaints, Denies numbness and Denies tingling Neurologic: Denies dizziness, Denies loss of vision, Denies numbness and Denies tingling Psychiatric: Psychiatric: Reports no additional psychiatric complaints Endocrine: Endocrine: Reports no additional endocrine complaints Hematologic/Lymphatic: Hematologic/Lymphatic: Reports no additional hematologic/lymphatic complaints Allergic/Immunologic: Allergic/Immunologic: Reports no additional allergic/immunologic complaints [facility] Past Medical History Attestation statement: The following information was validated with the patient. Source: old records reviewed and nursing notes reviewed Social History Social History Alcohol intake: never Advance Directives: No Advance Directives Information Provided: No Physical Exam ED Vital Signs: Vital Signs - 24 hr 05/29/23 10:05 Temperature 98.8 F Pulse Rate 96 Respiratory Rate 18 Blood Pressure 162/92 H Pulse Oximetry 98 Oxygen Delivery Method Room Air BMI result Body Mass Index 26.1 Const General: cooperative, no acute distress, alert and awake Nutritional Appearance: well nourished Orientation/consciousness: patient oriented x3 Limitations: no limitations HENMT Head: Yes normal to inspection and Yes atraumatic Ears: hearing grossly normal bilaterally and external ears normal General nose exam: Normal external nose present, no nasal discharge noted and no epistaxis Face and sinus: Yes normal facial exam, No abrasion and No laceration Mouth: Normal oral and palatal mucosa present, no drooling and no muffled voice Eyes General: appearance normal, both eyes and all related structures Periorbital: periorbital findings normal Eyelids: Yes eyelids normal Conjunctivae: conjunctivae normal Pupils: Equal, round and reactive pupils present EOM: EOMs intact bilaterally Neck Neck: Yes normal visual inspection, Yes full ROM and Yes no lymphadenopathy Chest Chest palpation & inspection: normal inspection of the chest Resp Effort & Inspection: normal respiratory effort and able to speak in complete sentences GI Inspection: Yes normal to inspection Neuro General: patient oriented x3 and moves all extremities Cranial nerves: Yes Equal, round and reactive pupils present Cognition (Neuro): normal cognition Motor exam (neuro): 5/5 motor strength present throughout Sensory Exam: Normal double simultaneous stimulation for sensation Coordination: [id number] test normal Extrem General: Yes normal to inspection, Yes full ROM and Yes capillary refill normal Psych Appearance: grossly normal Mental Status: mental status grossly normal Affect: normal affect Attitude: cooperative Thought process: Normal thought process present Thought content: Normal thought content present Insight: Good insight present (Psych) Medications Administered Discontinued Medications Generic Name Dose Route Start Last Admin Trade Name Freq PRN Reason Stop Dose Admin Dexamethasone Sodium Phosphate 10 mg 05/29/23 09:55 05/29/23 10:24 Dexamethasone Sod Phosphate 10 Mg/Ml Vial PO 05/29/23 09:56 10 mg ONCE ONE Administration Medical Decision Making Medical Decision Making [facility] Narrative: Patient is a 48 year old assigned female at with a history of HTN presenting to the emergency department today with a cough, sore throat, and congestion. Patient's physical exam was unremarkable. Patient's chest x-ray showed no acute process. Patient's COVID-19 test was positive. Patient's influenza, RSV, and strep tests were negative. I explained my physical exam findings as well as all test results to the patient. I answered all questions asked by the patient. I stressed the importance of the patient taking her medication as prescribed. I stressed the importance of the patient following up with her primary care provider. I stressed the importance of the patient returning to the emergency department immediately if her symptoms were to worsen or if she were to develop any dizziness, shortness of breath, difficulty b reathing, chest pain, blurry vision, loss of vision, nausea, vomiting, abdominal pain, fever, chills, back pain, or any other complaints. Patient verbalized agreement and understanding with this treatment plan and discharge. Differential Diagnosis Differential Diagnoses: The differential diagnosis associated with the presentation includes RSV COVID-19 Influenza Strep pharyngitis Admission/Observation Consideration of admission/observation: Escalation of care including admission/observation considered Patient would have been admitted to the hospital had her work up had any findings where hospital admission was appropriate and her clinical presentation warranted hospital admission. Lab Data [facility] Lab Attestation statement: I reviewed the patient's lab results. My interpretation of these results are in the [facility] Rationale portion of this note. Labs: Lab Results 05/29/23 Range/Units 10:09 Influenza Type A (PCR) NEGATIVE (Negative) Influenza Type B (PCR) NEGATIVE (Negative) RSV RNA Qual (PCR) NEGATIVE (Negative) SARS-CoV-2 RNA (RT-PCR) POSITIVE A (Negative) S. pyogenes GrpA ALBER Negative (Negative) Independent Interpretation I performed an independent interpretation of an: Plain X-Ray Interpretation: My interpretation is in agreement with the radiologist's impression of this imaging study. EXAMINATION: XR CHEST CLINICAL INFORMATION: Cough. COMPARISON: None available. TECHNIQUE: 2 views of the chest were obtained. FINDINGS: No significant abnormality is noted involving the heart, lungs, mediastinum, bony thorax or soft tissues. XR/XR chest 2V IMPRESSION: Unremarkable chest examination. Dictated By: Man Weathers MD Signed By: Electronically signed by Man Weathers MD 05/29/23 1058 Radiology Impression Discussion of test interpretation with radiology: I have reviewed the radiologist's reading. Prescription Management I considered prescription management with: Antibiotic (given the patient is coughing up phlegm, will cover with antibiotic. ) Chronic Conditions Patient?s care impacted by: Hypertension Discharge Plan Discharge Clinical Impression: COVID-19 Patient Disposition: Home, Self-Care Instructions: COVID-19 (Coronavirus Disease 2019) (ED) Additional Instructions: Follow up with your primary care provider. Return to the emergency department immediately if your symptoms worsen or if you develop any dizziness, shortness of breath, difficulty breathing, chest pain, blurry vision, loss of vision, nausea, vomiting, abdominal pain, fever, chills, back pain, or any other complaints. Prescriptions: New benzonatate 100 mg capsule 100 mg PO BID PRN (Reason: cough) 7 Days Qty: 14 0RF prednisone 20 mg tablet 20 mg PO DAILY 7 Days Qty: 7 0RF doxycycline hyclate 100 mg tablet 100 mg PO BID 7 Days Qty: 14 0RF No Action metoprolol succinate 100 mg tablet extended release 24 hr 100 mg PO DAILY Qty: 30 0RF prednisone 20 mg tablet 40 mg PO DAILY Qty: 10 0RF codeine-guaifenesin 10-100 mg/5 mL liquid 10 ml PO Q6H PRN (Reason: cough) Qty: 237 0RF albuterol sulfate [ProAir HFA] 90 mcg/actuation HFA aerosol inhaler 2 puff inhalation Q4-6H PRN (Reason: shortness of breath or wheezing) Qty: 8.5 0RF cefdinir 300 mg capsule 300 mg PO BID Qty: 14 0RF Referrals: Phan Vogel III, MD [Primary Care Provider] - Stand Alone Forms: Work/School Release Interventions: ED Discharge Assessment Last Done: 05/29/23 11:28 Discharge Date/Time: 05/29/23 11:28 Print Language: Cymro
[2023-05-29 10:05] VITALS: BP 162/92; PULSE 96; RESP 18; TEMP 37.1; O2SAT 98; BMI 26.1
[2023-05-29] MEDS: dexAMETHasone sod phosphate 10 MG/ML VIAL PO (10:24)
[2023-05-29 11:00] LABS: IDNOW Serial# 08D9AD1C; Strep A Nucleic Acid Negative (Negative)
[2023-05-29 11:03] LABS: Influenza A PCR NEGATIVE (Negative); Influenza B PCR NEGATIVE (Negative); Resp Syncy Virus RNA Qual PCR NEGATIVE (Negative); SARS COV2 PCR INHOUSE POSITIVE (Negative)
== END 2023-05-29 11:28 | disposition home or self-care (01) ==
PROVIDERS: Physician Assistant Medical; Emergency Provider Emergency Medicine Emergency Medical Services; PCP Internal Medicine
DX: U07.1 COVID-19 (principal); J02.9 Acute pharyngitis, unspecified; I10 Essential (primary) hypertension
CPT/HCPCS: 0241U; 71046; 87651; 99282; 99283; J1100